=== PATIENT | male | born 1990 | race Caucasian/White ===

== ENCOUNTER 2023-07-21 19:03 | Emergency (ER) | payer OTHER, SELFPAY ==
[2023-07-21 19:06] VITALS: BP 130/100
--- NOTE | 2023-07-21 19:29 | ED.GENMED ---
History of Present Illness
<Aram Mcpherson PA-C - Last Filed: 07/22/23 16:11>
General
Chief Complaint: Male Genito-Urinary Symptoms
Source: patient
Time Seen by Provider: 07/21/23 19:12
Travel History
Have you had any contact with someone who has COVID-19?: No
Do you have any symptoms of coronavirus? Fever > 100 degrees, chills, cough, shortness of breath, sore throat, loss of taste or smell, muscle aches, or headache?: No
History of Present Illness
History of Present Illness:
32-year-old male with past medical history of urethral stricture and previous UTI, recently finished an antibiotic for UTI (Bactrim) presents to the emergency department for evaluation after sudden onset left testicular pain around 2 hours ago while
he was at a family member's house having dinner. Patient notes no other symptoms including fevers, back or flank pain, vomiting. Denies any history of similar. States he is sexually active with his and has no concern for STI. Follows with
Dr. Argueta from urology for the previous urethral stricture and has an appointment upcoming with him in the next 2 weeks.
Past History
<Aram Mcpherson PA-C - Last Filed: 07/22/23 16:11>
Past History
ED Past Medical History: GERD and Other (chronic back and neck pain)
ED Past Surgical History: Urological
Social History
Tobacco: Non-smoker
Alcohol: None
Drug: None
Personal:
Living: with family
Employment: Employed
Review of Systems
<Aram Mcpherson PA-C - Last Filed: 07/22/23 16:11>
Review of Systems
All Other Systems: ROS reviewed and negative except as documented in HPI and ROS
Phy Exam
<Aarm Mcpherson PA-C - Last Filed: 07/22/23 16:11>
Physical Exam
Physical Exam:
GENERAL: Alert , in no apparent distress
EYE: clear conjunctiva b/l
HEAD: NCAT
ENT: o/p clr, mmm.
ABDOMEN: Soft, without focal tenderness, no r/g, no cvat
Genitourinary: Circumcised, no sores/lesions, no urethral discharge. Left testicle is mildly edematous with tenderness over the epididymis. Normal testicular lie, positive cremasteric reflex bilateral. No hernias appreciated bilateral
NEUROLOGICAL: Alert and oriented
SKIN: Warm and dry, skin intact.
MUSCULOSKELETAL: No edema, well perfused.
PSYCH: Normal and appropriate interaction.
Scores
<rAam Mcpherson PA-C - Last Filed: 07/22/23 16:11>
Heart Failure Risk
Heart Failure Risk Score: Not Applicable
Heart Score for Chest Pain Patients
STEMI patient?: Not applicable
Withdrawal Assessment of Alcohol
Withdrawal Assessment Completed?: Not applicable
Course
<Aram Mcpherson PA-C - Last Filed: 07/22/23 16:11>
Orders/Labs/Results
Orders:
Orders
07/21/23 19:28
Ketorolac [Toradol] 60 mg IM NOW STA
Scrotum US [US Scrotum] Urgent
Comment:
Reason For Exam: sudden left testicular pain
07/21/23 19:39
Ondansetron Orally Disint [Zofran Odt (Orally Disintegrating)] 4 mg PO NOW STA
07/21/23 19:44
Urinalysis Reflex To Culture Urgent
Date Specimen was Collected: 07/21/23
Time Specimen was Collected: 19:38
Urine Microscopic Reflex Cult Urgent
Chlamydia/GC by PCR Urgent
PRISCILLA Source: Urine
Specimen Description:
Source:: URINE
Date Specimen was Collected: 07/21/23
Time Specimen was Collected: 19:38
Urine Culture Urgent
PRISCILLA Source: U
Specimen Description:
Date Specimen was Collected: 07/21/23
Time Specimen was Collected: :38
07/21/23 20:17
Ciprofloxacin HCl [Cipro] 500 mg PO NOW STA
Abnormal Lab Results
07/21/23
19:44
Urine Nitrite (Reflex) Positive A
(Negative)
Leukocyte Esterase Rfl 1+ A
(Negative)
Urine WBC (Reflex) 50-60 A /HPF
(0-5)
Urine Bacteria (Reflex) Few A
(Negative)
Vital Signs
Initial and Last Documented VS:
Initial Vital Signs
Temp Pulse Resp BP Pulse Ox
97.5 F 104 18 130/100 100
07/21/23 19:06 07/21/23 19:06 07/21/23 19:06 07/21/23 19:06 07/21/23 19:06
Last Documented Vital Signs
Temp Pulse Resp BP Pulse Ox
97.5 F 70 18 124/78 100
07/21/23 19:06 07/21/23 21:06 07/21/23 21:06 07/21/23 21:06 07/21/23 21:06
<Parviz Jaquez PA-C - Last Filed: 07/21/23 21:33>
Orders/Labs/Results
Orders:
Orders
07/21/23 19:28
Ketorolac [Toradol] 60 mg IM NOW STA
Scrotum US [US Scrotum] Urgent
Comment:
Reason For Exam: sudden left testicular pain
07/21/23 19:39
Ondansetron Orally Disint [Zofran Odt (Orally Disintegrating)] 4 mg PO NOW STA
07/21/23 19:44
Urinalysis Reflex To Culture Urgent
Date Specimen was Collected: 07/21/23
Time Specimen was Collected: :38
Urine Microscopic Reflex Cult Urgent
Chlamydia/GC by PCR Urgent
PRISCILLA Source: Urine
Specimen Description:
Source:: URINE
Date Specimen was Collected: 07/21/23
Time Specimen was Collected: :38
Urine Culture Urgent
PRISCILLA Source: U
Specimen Description:
Date Specimen was Collected: 07/21/23
Time Specimen was Collected: :
07/21/23 20:17
Ciprofloxacin HCl [Cipro] 500 mg PO NOW STA
Abnormal Lab Results
07/21/23
19:44
Urine Nitrite (Reflex) Positive A
(Negative)
Leukocyte Esterase Rfl 1+ A
(Negative)
Urine WBC (Reflex) 50-60 A /HPF
(0-5)
Urine Bacteria (Reflex) Few A
(Negative)
Vital Signs
Initial and Last Documented VS:
Initial Vital Signs
Temp Pulse Resp BP Pulse Ox
97.5 F 104 18 130/100 100
07/21/23 19:06 07/21/23 19:06 07/21/23 19:06 07/21/23 19:06 07/21/23 19:06
Last Documented Vital Signs
Temp Pulse Resp BP Pulse Ox
97.5 F 70 18 124/78 100
07/21/23 19:06 07/21/23 21:06 07/21/23 21:06 07/21/23 21:06 07/21/23 21:06
<Aram Mcpherson PA-C - Last Filed: 07/22/23 16:11>
MDM/Problems Addressed
Differential Diagnosis Includes:
Epididymitis thought to be most likely given recent urinary tract infection, testicular torsion, hernia, STI
MDM/Problems Addressed:
32-year-old male present emergency department for evaluation of acute onset left testicular pain this evening. Recently completed antibiotics for a urinary tract infection. Exam reveals tenderness in the posterior portion of the testicle along the
epididymis. I suspect epididymitis to be the most likely diagnosis but will check an ultrasound to rule out torsion. Toradol ordered for pain control. Reassessment following
<Aram Mcpherson PA-C - Last Filed: 07/22/23 16:11>
*Pulse Oximetry
Patient hypoxic: no
<Parviz Jaquez PA-C - Last Filed: 07/21/23 21:33>
*Critical Care Note
Total Time (30-74mins, 75-104mins- exclusive of procedures): Not Applicable
<Parviz Jaquez PA-C - Last Filed: 07/21/23 21:33>
Update Note
Update Note:
Assumed care of patient from Gasper Mcpherson PA-C at shift change. Awaiting ultrasound for presumed epididymitis.
2100: Patient reassessed. Ultrasound reveals epididymitis. Urinalysis positive for UTI, likely failure of prior treatment. Patient is clinically well and does not. Be uncomfortable at this time. He will be discharged on ciprofloxacin, updated
the antibiotic prescription to complete a 10-day course. He has urology follow-up in 2 weeks
ED Attending Note
<Aram Mcpherson PA-C - Last Filed: 07/22/23 16:11>
-
Portions of this chart may have been created with voice recognition software.� Occasional wrong word or��sound alike� substitutions may have occurred due to the inherent limitations of voice recognition software.
Discharge Plan
Departure
Patient Disposition: Home (Routine Discharge)
Date of Disposition: 07/21/23
Time of Disposition: 20:57
Patient with high blood pressure during this ER visit?: No
Discharge Problem:
Epididymitis, left
Instructions: Epididymitis (DC)
Prescriptions:
New
ciprofloxacin HCl [Cipro] 500 mg tablet
500 mg PO Q12H Qty: 19 0RF
No Action
lidocaine-menthol [Icy Hot Patch (lido-menthol)] 1 EACH adhesive patch,medicated
1 ea topical DAILYPRN PRN (Reason: back pain)
tizanidine 4 MG tablet
8 mg PO TID Qty: 24 0RF
prednisone 20 MG tablet
40 mg PO DAILY Qty: 4 0RF
naproxen [Naprosyn] 500 MG tablet
500 mg PO TID Qty: 21 0RF
lorazepam 0.5 MG tablet
0.5 mg PO BID PRN (Reason: anxiety) Qty: 14 0RF
Interventions
Interventions:
*Risk Screen - Suicide Last Done: 07/21/23 19:06
*General Assessment Last Done: 07/21/23 20:14
*Neglect/Abuse Screening Last Done: 07/21/23 19:06
ED- Fall Risk Assessment Last Done: 07/21/23 20:14
*Nursing Disposition Last Done: 07/21/23 21:11
ED-Male Genitourinary Assessment Last Done: 07/21/23 20:14
Discharge Date and Time
Discharge Date/Time: 07/21/23 21:24
[2023-07-21] MEDS: TORADOL 60 MG IM (19:42)
[2023-07-21] MEDS: ZOFRAN ODT (ORALLY DISINTEGRATING) 4 MG PO (19:43)
[2023-07-21 20:00] LABS: Urine Albumin Trace (Neg - Trace); Urine Bilirubin Negative (Negative); Urine Character Slightly Cloudy (Clear); Urine Color Yellow; Urine Glucose Negative (Negative); Urine Ketone Negative (Negative); Urine Leukocyte 1+ (Negative); Urine Nitrite Positive (Negative); Urine Occult Blood Negative (Negative); Urine Specific Gravity 1.015 (<1.030); Urine Urobilinogen Negative (Neg - 1+)
[2023-07-21 20:07] LABS: Urine Red Blood Cell None Seen /HPF (0-2); Urine White Cell 50-60 /HPF (0-5)
[2023-07-21 20:08] LABS: Urine Bacteria Few (Negative)
[2023-07-21] MEDS: CIPRO 500 MG PO (20:59)
[2023-07-21 21:06] VITALS: BP 124/78
== END 2023-07-21 21:24 | disposition home or self-care (01) ==
LOC: EMR 19:03
PROVIDERS: Physician Assistant Medical; EMERGENCY PHYSICIAN Emergency Medicine; FAMILY PHYSICIAN Internal Medicine
DX: N45.1 Epididymitis (principal)
CPT/HCPCS: 99284; 96372; 76870; 81003; 81015; 87086; 87491; 87591; 93976

== ENCOUNTER 2023-07-24 12:21 | Emergency (ER) | payer OTHER, SELFPAY ==
[2023-07-24 12:29] VITALS: BP 151/84
--- NOTE | 2023-07-24 14:44 | ED.GENMED ---
History of Present Illness
General
Chief Complaint: Abdominal Pain
Time Seen by Provider: 07/24/23 14:40
Travel History
Have you had any contact with someone who has COVID-19?: No
Do you have any symptoms of coronavirus? Fever > 100 degrees, chills, cough, shortness of breath, sore throat, loss of taste or smell, muscle aches, or headache?: No
History of Present Illness
History of Present Illness:
32-year-old male presents emergency department for evaluation of abdominal discomfort, nausea, and vomiting. He was seen here 2 days ago and started on ciprofloxacin due to epididymitis. Has taken 5 doses thus far with severe abdominal distress
and vomiting after each dose. He had previously taken a course of Bactrim prior to being prescribed Cipro that did not resolve his symptoms. He does report that his epididymitis symptoms have improved. No fevers
Past History
Past History
ED Past Medical History: GERD and Other (chronic back and neck pain)
ED Past Surgical History: Urological
Social History
Tobacco: Non-smoker
Alcohol: None
Drug: None
Personal:
Living: with family
Employment: Employed
Review of Systems
Review of Systems
Allergies reviewed?: Yes
All Other Systems: ROS reviewed and negative except as documented in HPI and ROS
Phy Exam
Physical Exam
Physical Exam:
GEN: Well appearing, NAD, WDWN
HEENT: Oral mucosa moist, no scleral icterus
Cardiac: Regular rate
Lung: No respiratory distress, no tachypnea
MSK: No gross deformity or injuries
Skin: Good color, no pallor or jaundice, no rashes
Neuro: AO x3, moves all extremities freely
Psych: Calm, cooperative
Course
Orders/Labs/Results
Orders:
Orders
07/24/23 15:03
Ketorolac [Toradol] 15 mg IV NOW STA
07/24/23 15:15
Gentamicin Sulfate [Gentamicin] 200 mg 0.9% Sodium Chloride [Nss] 50 ml IV NOW
Vital Signs
Initial and Last Documented VS:
Initial Vital Signs
Temp Pulse Resp BP Pulse Ox
98.3 F 100 18 151/84 98
07/24/23 12:29 07/24/23 12:29 07/24/23 12:07/24/23 12:07/24/23 12:29
Last Documented Vital Signs
Temp Pulse Resp BP Pulse Ox
98.3 F 100 18 151/84 98
07/24/23 12:29 07/24/23 12:29 07/24/23 12:07/24/23 12:07/24/23 12:29
MDM/Problems Addressed
MDM/Problems Addressed:
Case discussed with urology, recommends loading dose of gentamicin and switching the patient to doxycycline. The patient is a scheduled follow-up with urology next week
*Critical Care Note
Total Time (30-74mins, 75-104mins- exclusive of procedures): Not Applicable
ED Attending Note
-
Portions of this chart may have been created with voice recognition software.� Occasional wrong word or��sound alike� substitutions may have occurred due to the inherent limitations of voice recognition software.
Discharge Plan
Departure
Patient Disposition: Home (Routine Discharge)
Date of Disposition: 07/24/23
Time of Disposition: 16:24
Patient with high blood pressure during this ER visit?: No
Discharge Problem:
Acute epididymitis, Antibiotic drug intolerance
Prescriptions:
New
doxycycline monohydrate 100 mg capsule
100 mg PO BID 10 Days Qty: 20 0RF
Discontinued
ciprofloxacin HCl [Cipro] 500 mg tablet
500 mg PO Q12H Qty: 19 0RF
No Action
lidocaine-menthol [Icy Hot Patch (lido-menthol)] 1 EACH adhesive patch,medicated
1 ea topical DAILYPRN PRN (Reason: back pain)
tizanidine 4 MG tablet
8 mg PO TID Qty: 24 0RF
prednisone 20 MG tablet
40 mg PO DAILY Qty: 4 0RF
naproxen [Naprosyn] 500 MG tablet
500 mg PO TID Qty: 21 0RF
lorazepam 0.5 MG tablet
0.5 mg PO BID PRN (Reason: anxiety) Qty: 14 0RF
Referrals:
Augustin Vela CRNP [Family Provider] -
Activity Restrictions/Additional Instructions:
Stop the cipro
Begin the doxycycline
Follow up with Dr Argueta next week
Interventions
Interventions:
*Risk Screen - Suicide Last Done: 07/24/23 12:29
*General Assessment Last Done: 07/24/23 12:29
*Neglect/Abuse Screening Last Done: 07/24/23 12:29
ED- Fall Risk Assessment Last Done: 07/24/23 15:17
*ED COVID-19 Vaccine History Last Done: 07/24/23 12:29
*Nursing Disposition Last Done: 07/24/23 16:30
OP-Nfyhtz-Flpvtxuurz Assessment Last Done: 07/24/23 15:17
Discharge Date and Time
Discharge Date/Time: 07/24/23 16:30
[2023-07-24] MEDS: TORADOL 15 MG IV (15:33)
[2023-07-24] MEDS: GENTAMICIN 55 MG IV (15:33)
== END 2023-07-24 16:30 | disposition home or self-care (01) ==
LOC: EMR 12:21
PROVIDERS: EMERGENCY PHYSICIAN Emergency Medicine; FAMILY PHYSICIAN Nurse Practitioner Family
DX: N45.1 Epididymitis (principal); Z88.1 Allergy status to other antibiotic agents
CPT/HCPCS: 99284; 96365; 96375